=== PATIENT | female | born 1975 ===

== ENCOUNTER 2019-07-10 17:08 | Emergency (ER) | payer BC, SELFPAY ==
[2019-07-10 18:19] LABS: Bilirubin Negative (Negative); Blood, Urine 3+ (Negative); Clarity Turbid (Clear); Glucose, Urine (Dipstick) Normal (Negative); Leukocyte 75 Leu/uL (Negative); Nitrite Negative (Negative); Protein, Urine (Dipstick) Negative (Neg-Trace); Urobilinogen Normal mg/dL (Less than 2)
[2019-07-10 18:31] LABS: Bacteria/HPF 1+ HPF (None Seen)
--- NOTE | 2019-07-10 20:00 | ULT ---
Exam: Transabdominal and endovaginal pelvic ultrasound HISTORY: patient. Pain. Vaginal bleeding. COMPARISON: None TECHNIQUE: Transabdominal and endovaginal imaging of the pelvis is performed. Ovaries are interrogate d with grayscale, color flow, Doppler imaging and spectral wave form analysis FINDINGS: Uterus: No myometrial masses Uterus measurin.5 x 9.0 x 13.3 cm. Endometrium: Within the endometrium, there is a gestational sac, yolk sac and pole. heart tones with a rate of 180 bpm. Sturtevant-rump length is 4.55 cm corresponding to gestational age of 11 weeks 3 days.No subchorionic hemo rrhage.. Free fluid: None Incidentals: Anechoic focus in the cervix may represent a small nabothian cyst. Right ovary: Normal echotexture Right ovary measurement: 1.9 x 1.7 x 2.5 cm Left ovary: Anechoic focus occupies the majority the left ovary. Anechoic focus measures 2.5 x 1.9 x 2.1 cm may represent a corpus luteal cyst. Left ovary measurements: Overall, left ovary measures 3.6 x 2.3 x 3.7 cm Ovarian Doppler: There is vascular flow to the left and right ovary. IMPRESSION: Single intrauterine gestation with heart tones. Gestational age by crown-rump length is 11 week s 3 days. Transcribed Date/Time: 07/10/2019 8:42 PM
[2019-07-12 00:15] LABS: Chlamydia by PCR Not Detected (NotDetected); GC by PCR Not Detected (NotDetected)
== END 2019-07-10 21:00 | disposition home or self-care (01) ==
LOC: ERS 17:08
DX: O23.41 Unspecified infection of urinary tract in pregnancy, first trimester (principal); O20.9 Hemorrhage in early pregnancy, unspecified; Z3A.01 Less than 8 weeks gestation of pregnancy
CPT/HCPCS: 36415; 76856; 81003; 81015; 84702; 86900; 86901; 87086; 87480; 87491; 87510; 87591; 87660